=== PATIENT | female | born 1965 ===

== ENCOUNTER 2024-04-22 09:15 | Outpatient (CLI) | payer OTHER ==
[2024-04-22 10:19] LABS: URINE APPEARANCE Turbid; URINE BILIRRUBIN Negative (NEGATIVE); URINE BLOOD Moderate; URINE COLOR Yellow; URINE GLUCOSE Negative (NEGATIVE); URINE KETONE Negative (NEGATIVE); URINE LEUKOCYTE Large; URINE NITRATE Negative; URINE PROTEIN 30 (NEGATIVE); URINE UROBILINOGEN 0.2 E.U./dl
[2024-04-22 10:30] LABS: URINE RBC 110.3 uL (0.0-20.8); URINE WBC 4967.7 uL (0.0-23.2)
[2024-04-22 10:37] LABS: URINE BACTERIA > 9821.5 uL (0.0-1933)
[2024-04-22 11:06] LABS: BILIRUBIN TOTAL 0.58 mg/dL (0.3-1.2); CALCIUM 9.8 mg/dL (8.5-10.1); CREATININE SERUM 0.91 mg/dL (0.55-1.02); GFR 63.06; GLOBULINA 3.1 G/DL (2.4-3.5); TOTAL PROTEIN 7.1 gm/dL (6.4-8.2)
== END 2024-04-22 09:16 | disposition home or self-care (01) ==
LOC: LAB 09:15
PROVIDERS: ATTEND General Practice
DX: N39.0 Urinary tract infection, site not specified (principal); N20.1 Calculus of ureter

== ENCOUNTER 2024-04-22 10:21 | Outpatient (CLI) | payer OTHER | END 2024-04-22 10:31 | disposition home or self-care (01) | LOC: SONOGRAMA 10:21 | PROVIDERS: ATTEND General Practice | DX: N20.1 Calculus of ureter (principal); R10.32 Left lower quadrant pain ==